=== PATIENT | female | born 1980 | race Caucasian/White ===

== ENCOUNTER 2023-04-01 14:48 | Emergency (ER) | payer OTHER, SELFPAY ==
--- NOTE | ~2023-04-01 | XR_ITS ---
EXAMINATION: XR NASAL BONES CLINICAL INFORMATION: Evaluate for fracture COMPARISON: None available. TECHNIQUE: 3 views FINDINGS: Fracture mid to distal nasal bones. No significant displacement is seen XR/XR nasal bones min 3V IMPRESSION: Mid to distal nasal bone fracture.
[2023-04-01 14:52] VITALS: BP 134/73; PULSE 75; RESP 18; TEMP 36.6; O2SAT 97; BMI 37.0
--- NOTE | 2023-04-01 14:52 | ED.GENADULT ---
HPI - General Adult General Chief complaint: Extremity Injury, Upper Stated complaint: nose inj Time Seen by Provider: 04/01/23 15:59 Source: patient Mode of arrival: ambulatory Limitations: no limitations History of Present Illness HPI narrative: Patient is a 6-year-old female who presents emergency department for evaluation of nasal pain and deformity. She states earlier today she was playing with her daughter while she was lying down, her daughter suddenly fell backwards striking her in the face. She has subsequently developed pain over the nasal bridge, with slight deformity. She is able to move air through both nostrils. No epistaxis. No headache. No loss of consciousness. Related Data Previous Rx's Medication Instructions Recorded doxycycline monohydrate 100 mg 100 mg PO BID #14 caps 04/01/23 capsule Allergies Allergy/AdvReac Type Severity Reaction Status Date / Time amoxicillin Allergy Unknown Verified 06/28/13 00:00 Sulfa (Sulfonamide Allergy Unknown Verified 06/28/13 00:00 Antibiotics) Review of Systems Review of Systems: Yes all other systems are reviewed and are negative PMFSH Past Medical History Attestation statement: The following information was validated with the patient. Source: old records reviewed Social History Social History Advance Directives: No Advance Directives Information Provided: No Physical Exam ED Vital Signs: Vital Signs - 24 hr 04/01/23 14:52 Temperature 97.8 F Pulse Rate 75 Respiratory Rate 18 Blood Pressure 134/73 Pulse Oximetry 97 Oxygen Delivery Method Room Air BMI result Body Mass Index 37.0 Appearance: Alert.?Oriented to person, place and time. No acute distress.?Normal affect. Head: Normocephalic, atraumatic Eyes: Pupils equal, round and reactive to light.? EOMI. No nystagmus. No raccoon eyes. ENT: Pharynx normal.??Localized swelling over the nasal bridge, appears to have slight deviation towards the left, no septal hematoma. Dentition normal. Neck: Normal inspection.? Neck supple.?? CVS: Heart sounds normal. Normal heart rate and rhythm.? Pulses normal.?? Respiratory: No respiratory distress.? Lung sounds clear to auscultation bilaterally?? Skin: Skin warm and dry.? Normal skin color.? ? Neuro: Moves all extremities spontaneously. Sensation intact bilaterally. Ambulates with normal steady gait. Course Course Course Narrative: This is a rapid medical exam. Deferred additional HPI, ROS, PE to primary provider. 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 Reports her daughters head fell backwards hitting her. Denies LOC. Will obtain x-rays VSS Medical Decision Making Medical Decision Making MDM Narrative: Patient is a 42-year-old female who presents emergency department for evaluation of traumatic nasal pain after her daughter fell into her. Upon examination there is slight deviation towards the left with localized swelling. On exam no septal hematoma, nares are patent bilaterally. XR imaging reveals mid to distal nasal bone fracture without displacement. discussed outpatient follow-up with ENT, worrisome signs and symptoms that would warrant re-evaluation in the emergency department, [facility] for discharge Differential Diagnosis Differential Diagnoses: The differential diagnosis associated with the presentation includes (Nasal fracture, septal hematoma, epistaxis) Independent Interpretation I performed an independent interpretation of an: Plain X-Ray (I personally interpreted x-ray imaging and agree with radiologist impression.) Radiology Impression Discussion of test interpretation with radiology: I have reviewed the radiologist's reading. Radiologist Impression: XR/XR nasal bones min 3V IMPRESSION: Mid to distal nasal bone fracture. External Record Review External record reviewed: Outpatient record Prescription Management I considered prescription management with: Pain Medication (Acetaminophen/ibuprofen) Discharge Plan Discharge Clinical Impression: Fracture of nasal bone Qualifiers: Encounter type: initial encounter Fracture type: closed Qualified Code(s): S02.2XXA - Fracture of nasal bones, initial encounter for closed fracture Patient Disposition: Home, Self-Care Instructions: Nasal Fracture (ED) Prescriptions: New doxycycline monohydrate 100 mg capsule 100 mg PO BID Qty: 14 0RF Referrals: Antione Castle [Physician] -
== END 2023-04-01 17:45 | disposition home or self-care (01) ==
PROVIDERS: Emergency Provider Emergency Medicine Emergency Medical Services; PCP Internal Medicine
DX: S02.2XXA Fracture of nasal bones, initial encounter for closed fracture (principal); W50.0XXA Accidental hit or strike by another person, initial encounter; Y93.89 Activity, other specified; Y92.019 Unspecified place in single-family (private) house as the place of occurrence of the external cause; Y99.9 Unspecified external cause status
CPT/HCPCS: 70160; 99282; 99283